=== PATIENT | female | born 1955 | race African-American/Black ===

== ENCOUNTER 2017-01-02 09:24 | Emergency (ER) | payer MEDICAID ==
[~2017-01-02] VITALS: Ht 182.9 cm; Wt 86.2 kg
[2017-01-02 10:03] VITALS: BP 170/108
[2017-01-02] MEDS ORDERED: ONDANSETRON HCL 4 MG/2 ML VIAL IM ONE (10:15)
[2017-01-02] MEDS ORDERED: HYDROmorphone HCL 2 MG/ML VL IM ONE (10:15)
== END 2017-01-02 12:45 | disposition home or self-care (01) ==
LOC: ER 09:24
DX: S42.91XA Fracture of right shoulder girdle, part unspecified, initial encounter for closed fracture (principal); G43.909 Migraine, unspecified, not intractable, without status migrainosus; W20.0XXA Struck by falling object in cave-in, initial encounter; Y93.A1 Activity, exercise machines primarily for cardiorespiratory conditioning; Y92.89 Other specified places as the place of occurrence of the external cause; Y99.8 Other external cause status
CPT/HCPCS: 29105; 73030; 73060; 73200; 96372; 99284; J1170; J2405

== ENCOUNTER 2017-01-31 07:26 | Emergency (ER) | payer MEDICAID ==
[~2017-01-31] VITALS: Ht 182.9 cm; Wt 84.8 kg
[2017-01-31 07:40] VITALS: BP 160/117
[2017-01-31] MEDS ORDERED: HYDROmorphone HCL 2 MG/ML VL IM ONE (08:30)
[2017-01-31] MEDS ORDERED: ONDANSETRON HCL 4 MG/2 ML VIAL IM ONE (08:30)
[2017-01-31] MEDS ORDERED: LORazepam 0.5 MG TAB PO ONE (09:45)
== END 2017-01-31 10:26 | disposition home or self-care (01) ==
LOC: ER 07:26
DX: S42.254A Nondisplaced fracture of greater tuberosity of right humerus, initial encounter for closed fracture (principal); W07.XXXA Fall from chair, initial encounter; Y93.89 Activity, other specified; Y99.8 Other external cause status; Y92.89 Other specified places as the place of occurrence of the external cause
CPT/HCPCS: 73200; 96372; 99284; J1170; J2405

== ENCOUNTER 2017-02-22 08:02 | Emergency (ER) | payer MEDICAID ==
[~2017-02-22] VITALS: Ht 182.9 cm; Wt 87.1 kg
[2017-02-22 08:15] VITALS: BP 157/108
== END 2017-02-22 13:32 | disposition left against medical advice (07) ==
LOC: ER 08:02
DX: M25.511 Pain in right shoulder (principal); G43.909 Migraine, unspecified, not intractable, without status migrainosus; Z53.29 Procedure and treatment not carried out because of patient's decision for other reasons

== ENCOUNTER 2017-04-22 08:14 | Emergency (ER) | payer MEDICAID ==
[~2017-04-22] VITALS: Ht 182.9 cm; Wt 84.8 kg
[2017-04-22 08:26] VITALS: BP 189/110
[2017-04-22] MEDS: KETOROLAC TROMETH 60MG/2ML VIAL IM ONE (09:01)
== END 2017-04-22 09:22 | disposition home or self-care (01) ==
LOC: ER 08:14 → EDBD 08:14 → ER 09:22
DX: S80.01XA Contusion of right knee, initial encounter (principal); S80.02XA Contusion of left knee, initial encounter; W19.XXXA Unspecified fall, initial encounter; Z91.81 History of falling; Y93.89 Activity, other specified; Y92.89 Other specified places as the place of occurrence of the external cause; Y99.8 Other external cause status
CPT/HCPCS: 73562; 96372; 99284; J1885

== ENCOUNTER 2017-05-17 09:06 | Emergency (ER) | payer MEDICAID ==
[~2017-05-17] VITALS: Ht 182.9 cm; Wt 90.3 kg
[2017-05-17 09:33] VITALS: BP 138/103
[2017-05-17] MEDS ORDERED: KETOROLAC TROMETH 60MG/2ML VIAL IM ONE (10:00)
== END 2017-05-17 10:51 | disposition home or self-care (01) ==
LOC: ER 09:06
DX: S46.001A Unspecified injury of muscle(s) and tendon(s) of the rotator cuff of right shoulder, initial encounter (principal); X58.XXXA Exposure to other specified factors, initial encounter; Y93.89 Activity, other specified; Y92.89 Other specified places as the place of occurrence of the external cause; Y99.8 Other external cause status
CPT/HCPCS: 96372; 99283; J1885

== ENCOUNTER 2017-08-31 11:44 | Emergency (ER) | payer MEDICAID, OTHER ==
[~2017-08-31] VITALS: Ht 185.4 cm; Wt 86.2 kg
[2017-08-31 12:50] LABS: Basophils # (auto) 0 uL; Eosinophils # (auto) 0 uL; Hemoglobin 10.5 g/dL (12.2-16.2); Monocytes # (auto) 0.5 uL; Neutrophils # (auto) 4.9 uL
[2017-08-31 12:51] LABS: Basophils % (auto) 0.4 % (0.0-2.0); Eosinophils % (auto) 0.7 % (0.0-7.0); Hematocrit 32.1 % (36.0-46.0); Lymphocytes # (auto) 1.5 uL; Lymphocytes % (auto) 22.2 % (10.0-50.0); Mean Corpuscular Hemoglobin 26.4 pg (28.0-32.0); Mean Corpuscular Hgb Conc. 32.7 g/dL (32.0-36.0); Mean Corpuscular Volume 80.7 fL (80.0-100.0); Monocytes % (auto) 6.7 % (0.0-12.0); Platelet Count (auto) 213 10^3/uL (140-450); Red Blood Cells 3.98 10^6/uL (4.0-5.20); Red Cell Distribution Width 14.1 % (11.8-14.3)
[2017-08-31] MEDS ORDERED: ALBUTEROL SULF 2.5 MG/0.5ML(0.5%) NEB SOLN NEB ONE (13:00)
[2017-08-31] MEDS ORDERED: predniSONE 20 MG TAB PO ONE (13:00)
[2017-08-31 13:13] LABS: Albumin 3.4 g/dL (3.4-5.0); Anion Gap 8 (5-15); Blood Urea Nitrogen 16 mg/dL (7-18); Calcium 9.2 mg/dL (8.5-10.1); Carbon Dioxide 24 mmol/L (21-32); Chloride 111 mmol/L (98-107); Glucose 95 mg/dL (74-106); Magnesium 2.1 mg/dL (1.6-2.6); Potassium 3.6 mmol/L (3.5-5.1); Sodium 143 mmol/L (136-145)
[2017-08-31 13:15] LABS: Alanine Aminotransferase 26 U/L (13-56); Aspartate Aminotransferase 27 U/L (15-37); GFR African American 83 mL/min; GFR Non-African American 69 mL/min
[2017-08-31] MEDS ORDERED: cefTRIAXone W LIDOCAINE 1 GM IM IM ONE (13:15)
[2017-08-31 13:21] LABS: Alkaline Phosphatase 62 U/L (45-117); Bilirubin, Total 0.4 mg/dL (0.2-1.0); Total Protein 7.4 g/dL (6.4-8.2)
[2017-08-31] MEDS ORDERED: cefTRIAXone SOD 1,000 MG VL ONE (16:12)
[2017-08-31] MEDS ORDERED: LIDOCAINE 1% (LOCAL ANESTH.) PF 5ml SDV ONE (16:13)
[2017-08-31 16:38] VITALS: BP 126/70
== END 2017-08-31 16:40 | disposition home or self-care (01) ==
LOC: ER 11:47
DX: J40 Bronchitis, not specified as acute or chronic (principal)
CPT/HCPCS: 36415; 71046; 80053; 83735; 84484; 85025; 93005; 94640; 96372; 99285; J0696; J7512

== ENCOUNTER 2017-09-02 20:10 | Emergency (ER) | payer OTHER ==
[~2017-09-02] VITALS: Ht 180.3 cm; Wt 86.2 kg
[2017-09-02 20:24] VITALS: BP 138/72
== END 2017-09-02 22:12 | disposition home or self-care (01) ==
LOC: EDBD 20:10 → ER 20:17
DX: H66.93 Otitis media, unspecified, bilateral (principal)